=== PATIENT | female | born 1960 | race Caucasian/White ===

== ENCOUNTER 2017-07-17 18:14 | Emergency (ER) | payer MEDICAID ==
[2017-07-17 18:50] VITALS: BMI 25.6
[2017-07-17 18:53] VITALS: TEMP 98.9
--- NOTE | 2017-07-17 19:00 | ED PDOC ---
Arrival/HPI - General Chief Complaint: Trauma Time Seen by Provider: 07/17/17 18:58 Historian: Patient - History of Present Illness Narrative History of Present Illness (Text): 07/17/17 18:59 This 57 yo female presents to this ED c/o left elbow pain, and right anterior knee pain x 3 hours. Patient stated while walking on side walk, she tripped and fell down. Patient stated she fell well at first, but pain has been gradually worsening. Patient denies head injury, LOC, weakness, paresthesias, back pain, hip pain, or dizziness. Last tetanus is UKN. Time/Duration: Other (3 hours) Symptom Onset: Sudden Symptom Course: Worsening Quality: Aching Context: Walking Past Medical History - Provider Review Nursing Documentation Reviewed: Yes - Infectious Disease Hx of Infectious Diseases: None - Neurological Hx Alzheimer's Disease: Yes - Endocrine/Metabolic Hx Diabetes Mellitus Type 2: Yes - Hematological/Oncological Other/Comment: L Breast -- double mastectomy - Genitourinary/Gynecological Other/Comment: Frequent urination - Psychiatric Hx Depression: Yes Hx Substance Use: No - Surgical History Hx Mastectomy: Yes (2012) - Anesthesia Hx Anesthesia: Yes Hx Anesthesia Reactions: No Hx Malignant Hyperthermia: No Family/Social History - Physician Review Nursing Documentation Reviewed: Yes Family/Social History: Other (non-contributory) Smoking Status: Never Smoked Hx Alcohol Use: No Hx Substance Use: No Allergies/Home Meds Allergies/Adverse Reactions: Allergies iodine Adverse Reaction (Verified 05/15/16 20:33) ANGIOEDEMA kiwi Adverse Reaction (Uncoded 05/15/16 20:33) ANGIOEDEMA Home Medications: Home Meds Medication Instructions Recorded Confirmed Alendronate Sodium [Alendronate 1 tab PO ONCE 05/15/16 07/17/17 (Fosamax)] Divalproex Sodium [Divalproex 1 tab PO DAILY 05/15/16 07/17/17 Sodium] Donepezil [Aricept] 5 mg PO DAILY 05/15/16 07/17/17 Folic Acid 1 mg PO DAILY 05/15/16 07/17/17 Tamoxifen Citrate [Tamoxifen 1 tab PO DAILY 05/15/16 07/17/17 Citrate] metFORMIN [glucOPHAGE] 1 tab PO DAILY 05/15/16 07/17/17 Review of Systems - Review of Systems Constitutional: Normal. absent: Fatigue, Weight Change, Fevers Eyes: Normal ENT: Normal Respiratory: Normal. absent: SOB, Cough Cardiovascular: Normal. absent: Chest Pain, Palpitations, Syncope Gastrointestinal: Normal. absent: Nausea, Vomiting Genitourinary Female: Normal Musculoskeletal: Other (see hpi) Skin: Other (abrasion right knee and left elbow) Neurological: Normal Endocrine: Normal Hemo/Lymphatic: Normal Psychiatric: Normal Physical Exam Vital Signs Temp Pulse Resp BP Pulse Ox 07/17/17 20:50 80 17 140/78 100 07/17/17 18:52 98.9 F 87 18 143/88 99 Temperature: Afebrile Blood Pressure: Normal Pulse: Regular Respiratory Rate: Normal Appearance: Positive for: Well-Appearing, Non-Toxic, Comfortable Pain Distress: None Mental Status: Positive for: Alert and Oriented X 3 - Systems Exam Head: Present: Atraumatic, Normocephalic, Other (no raccoon sign. No kelly sign) Pupils: Present: PERRL, Other (no yphema) Extroacular Muscles: Present: EOMI. No: Entrapment Conjunctiva: Present: Normal Ears: Present: Normal Mouth: Present: Moist Mucous Membranes, Normal Lips Neck: Present: Normal Range of Motion Respiratory/Chest: No: Tender to Palpation Abdomen: No: Tenderness Back: Present: Normal Inspection, Pain with Leg Raise. No: CVA Tenderness, Midline Tenderness, Paraspinal Tenderness Upper Extremity: Present: Normal Inspection, Normal ROM, NORMAL PULSES. No: Cyanosis, Edema Lower Extremity: Present: Normal Inspection, NORMAL PULSES, Normal ROM. No: Edema Neurological: Present: GCS=15, CN II-XII Intact, Speech Normal Skin: Present: Warm, Dry, Normal Color, Abrasion ((+) mild abrasion right anterior knee. (+) mild left lateral elbow abrasion. No laceration or ecchymosis). No: Rashes Psychiatric: Present: Alert, Oriented x 3, Normal Insight, Normal Concentration Medical Decision Making ED Course and Treatment: 07/17/17 20:22 Re-evaluation. Patient feels better. Discussed results and plan with patient who expresses understanding. All questions answered and there is agreement with the plan to discharge home with instructions. Patient stable for discharge. Return if symptoms persist or worsen. Wound care was done. Knee immobilizer, and arm sling were ordered. Patient was recommended to follow up with Dr. Berry Orthopedist at earliest appointment. Remove knee immobilizer at bedtime. Re-evaluation Time: 20:24 Reassessment Condition: Re-examined, Improved - RAD Interpretation Radiology Orders: 07/17/17 18:58 ELBOW LEFT 3 VIEWS ROUTINE [RAD] Stat KNEE W PATELLA RIGHT 3 VIEW [RAD] Stat - Medication Orders Current Medication Orders: Discontinued Medications Ibuprofen (Motrin Tab) 600 mg PO STAT STA Stop: 07/17/17 19:00 Last Admin: 07/17/17 19:17 Dose: 600 mg MAR Pain/Vitals Document 07/17/17 19:17 SF (Rec: 07/17/17 19:17 [id number] Pain Reassessment Is This A Pain ReAssessment? Yes Sleep Is patient sleeping during reassessment? No Presence of Pain Presence of Pain Yes Tetanus/Reduced Diphtheria/Acell Pertussis (Boostrix Vaccine Inj) 0.5 ml IM .ONCE ONE Stop: 07/17/17 19:06 Last Admin: 07/17/17 19:17 Dose: 0.5 ml MAR Immunization Data Document 07/17/17 19:17 SF (Rec: 07/17/17 19:18 [id number] Immunization Data Vaccine Lot Number [id number] Site Given Right Deltoid Assocated Event Comment given in right not left. only on option edit. Disposition/Present on Arrival - Present on Arrival Any Indicators Present on Arrival: No History of DVT/PE: No History of Uncontrolled Diabetes: No Urinary Catheter: No History of Decub. Ulcer: No History Surgical Site Infection Following: None - Disposition Have Diagnosis and Disposition been Completed?: Yes Diagnosis: Knee pain, acute, Elbow pain, left, Abrasion, Nondisplaced fracture of patella Disposition: HOME/ ROUTINE Disposition Time: 20:26 Patient Plan: Discharge Condition: GOOD Discharge Instructions (ExitCare): Elbow Sprain (ED), Knee Immobilizer (ED) Additional Instructions: Call doctor Jamal for follow up visit in 1-2 days. Apply cold compress, rest, knee immobilizer, arm sling. Return to emergency if pain worsen. Prescriptions: Naproxen 500 mg PO BID PRN #14 tab PRN Reason: Pain, Severe (8-10) [facility] - Follow up with primary Mastromonaco,Edward, DO [Staff Provider] - Follow up with primary Forms: [employer] (Surinamese), WORK NOTE
[2017-07-17] MEDS ORDERED: TDAP Vaccine 0.5 mL Syr IM ONE (19:05)
[2017-07-17 20:51] VITALS: BP 140/78; PULSE 80; RESP 17; O2SAT 100
--- NOTE | 2017-07-18 08:32 | RAD ---
PROCEDURE: Radiographs of the left elbow. HISTORY: Pain COMPARISON: No prior. FINDINGS: BONES: There is no acute displaced fracture or bone destruction. Bone alignment is normal. There is mild periarticular bone demineralization. JOINTS: Normal. No osteoarthritis. SOFT TISSUES: Normal. JOINT EFFUSION: None. OTHER FINDINGS: None IMPRESSION: No acute displaced fracture or dislocation.
--- NOTE | 2017-07-18 08:43 | RAD ---
PROCEDURE: Right Knee Radiographs. HISTORY: pain COMPARISON: None. FINDINGS: BONES: There is a lucency in the superior pole of the patella on lateral projection with an apparent cortical step-off in the posterior cortex of the medial patella on sunrise view. Bone alignment there is normal. There is mild periarticular bone demineralization JOINTS: There is mild degenerative osteoarthrosis in the medial compartment. JOINT EFFUSION: There is a small suprapatellar joint effusion. OTHER FINDINGS: None. IMPRESSION: Question of subtle nondisplaced chip fracture in the superior and medial pole of the patella. Small suprapatellar joint effusion.
== END 2017-07-17 20:52 | disposition home or self-care (01) ==
LOC: ED 18:14
DX: S50.312A Abrasion of left elbow, initial encounter (principal); S80.211A Abrasion, right knee, initial encounter; S82.001A Unspecified fracture of right patella, initial encounter for closed fracture; W01.0XXA Fall on same level from slipping, tripping and stumbling without subsequent striking against object, initial encounter; Y93.01 Activity, walking, marching and hiking; Y92.480 Sidewalk as the place of occurrence of the external cause; M25.522 Pain in left elbow; M25.561 Pain in right knee; Z23 Encounter for immunization